=== PATIENT | female | born 2000 | race Caucasian/White ===

== ENCOUNTER 2021-01-15 15:58 | Emergency (ER) | payer OTHER ==
[2021-01-15 18:12] VITALS: BP 135/79
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
--- NOTE | 2021-01-15 19:21 | CT Report ---
PROCEDURE: CERVICAL SPINE WO INDICATIONS: head injury TECHNIQUE: Noncontrast 3 mm thick sections acquired from the skull base to the T4 level. Sagittal and coronal r eformats were then constructed. For radiation dose reduction, the following was used: automated exp osure control, adjustment of mA and/or kV according to patient size. COMPARISON: None. FINDINGS: Image quality: Excellent. Bones: No fractures or dislocations. Visualized superior ribs are intact. Soft tissues: Prevertebral soft tissues are normal in thickness. No paravertebral hematomas. No ap ical pneumothoraces. IMPRESSION: No trauma found. Reviewed by: Jeffy Humphries MD on 01/15/2021 7:19 PM PDT Approved by: Jeffy Humphries MD on 01/15/2021 7:19 PM PDT Station ID: [id number]
--- NOTE | 2021-01-15 19:22 | CT Report ---
PROCEDURE: HEAD WO INDICATIONS: head injury TECHNIQUE: Noncontrast 4.5 mm thick angled axial sections acquired from the foramen magnum to the vertex. For r adiation dose reduction, the following was used: automated exposure control, adjustment of mA and/or kV according to patient size. COMPARISON: None. FINDINGS: Image quality: Excellent. CSF spaces: Basal cisterns are patent. No extra-axial fluid collections. Ventricles are normal in size and shape. Brain: No midline shift. No intracranial masses or hemorrhage. Freed-white matter interface is norm al. Skull and face: Calvarium and visualized facial bones are intact, without suspicious lesions. Sinuses: Visualized sinuses and mastoids are clear. IMPRESSION: No trauma found. Reviewed by: Jeffy Humphries MD on 01/15/2021 7:20 PM PDT Approved by: Jeffy Humphries MD on 01/15/2021 7:20 PM PDT Station ID: [id number]
== END 2021-01-15 20:45 | disposition home or self-care (01) ==
LOC: ED 15:58
DX: S06.0X1A Concussion with loss of consciousness of 30 minutes or less, initial encounter (principal); V86.59XA Driver of other special all-terrain or other off-road motor vehicle injured in nontraffic accident, initial encounter; Y93.I9 Activity, other involving external motion
CPT/HCPCS: 99284

== ENCOUNTER 2022-06-24 08:36 | Emergency (ER) | payer OTHER ==
[2022-06-24 09:03] VITALS: BP 130/76
[2022-06-24] MEDS ORDERED: IBUPROFEN 600 MG TABLET PO STA (10:57)
--- NOTE | 2022-06-24 11:00 | ED Physician Documentation ---
PD HPI LOWER EXT INJURY - Stated complaint Stated Complaint: L LEG NUMBNESS - Chief complaint Chief Complaint: Ext Problem - History obtained from History obtained from: Patient - Additional information Additional information: Patient is a 21-year-old female presenting for evaluation of pain in her left leg and numbness and tingling. She has a history of sciatica and her symptoms have been ongoing for the past 1 year. She has been seen by the [facility]. They have talked about doing an MRI or referring her to PT but have not done either.She uses ibuprofen occasionally for her symptoms which helps. The numbness and tingling have been worse for the past 2 to 3 days and she was advised to come to the emergency department. She has been able to ambulate without difficulty. She denies bowel or bladder incontinence. She does not have fevers, known malignancy, does not use blood thinners.She denies saddle anesthesia.She denies any recent injury or trauma. Review of Systems Constitutional: denies: Fever Nose: denies: Congestion Cardiac: denies: Chest pain / pressure Respiratory: denies: Dyspnea GI: denies: Abdominal Pain : denies: Dysuria Musculoskeletal: reports: Extremity pain Neurologic: denies: Headache PD PAST MEDICAL HISTORY - Past Surgical History Past Surgical History: No - Present Medications Home Medications: Ambulatory Orders Medication Instructions Recorded Confirmed predniSONE [Deltasone] 20 mg PO [id number] #21 tab 06/24/22 - Allergies Allergies/Adverse Reactions: Allergies Allergy/AdvReac Type Severity Reaction Status Date / Time No Known Drug Allergies Allergy Verified 06/24/22 09:02 - Social History Does the pt smoke?: No Smoking Status: Never smoker Does the pt drink ETOH?: Yes - Immunizations Immunizations are current?: Yes - POLST Patient has POLST: No PD ED PE NORMAL - General General: Alert and oriented X 3, No acute distress, Well developed/nourished - HEENT HEENT: Atraumatic, Moist mucous membranes - Neck Neck: Supple, no meningeal sign - Cardiac Cardiac: RRR, No murmur - Respiratory Respiratory: No respiratory distress, Clear bilaterally - Abdomen Abdomen: Soft, Non tender - Back Back: No spinal TTP - Derm Derm: Warm and dry - Extremities Extremities: Other (Sitting leg raise positive on the left; Pedal pulses intact,Normal range of motion at left hip, knee; Sensation grossly intact) - Neuro Neuro: No motor deficit, No sensory deficit, Other (Normal gait) Results - Vitals Vitals: Vital Signs - 24 hr 06/24/22 09:00 Temperature 37.0 C Heart Rate 77 Respiratory 16 Rate Blood Pressure 130/76 O2 Saturation 98 Oxygen O2 Source Room air PD MEDICAL DECISION MAKING - ED course ED course: Patient presenting for evaluation of pain and numbness and tingling into the left leg. She does have a history of sciatica. No recent trauma or injury. No red flag signs or symptoms in regards to her back pain. She is afebrile, ambulating without difficulty.Discussed trial of steroids for her symptoms which she is agreeable to. Patient is counseled on need for close follow-up with her PCP and may benefit from physical therapy referral or further testing such as an MRI. Patient is counseled on Concerning symptoms to return for. Departure - Departure Disposition: 01 Home, Self Care Clinical Impression: Radicular pain of left lower extremity Condition: Stable Instructions: Hamstring Stretch, ED Sciatica Prescriptions: predniSONE [Deltasone] 20 mg PO [id number] #21 tab Comments: I have started you on a steroid taper to help with the nerve inflammation that you are feeling. This could be sciatica or a another nerve Coming from your lower back.I would recommend close follow-up with your PCM. You may need further testing or treatment such as physical therapy or an MRI. If anytime you have worsening symptoms such as loss of control of your bladder or bowel functions, weakness in your legs or any concerns please return to the emergency department. I have sent your prescription to [facility] in [place]. Discharge Date/Time: 06/24/22 11:10
== END 2022-06-24 11:10 | disposition home or self-care (01) ==
LOC: ED 08:36
DX: M54.16 Radiculopathy, lumbar region (principal)
CPT/HCPCS: 99282; A9270